=== PATIENT | female | born 1970 | race Two or more races ===

== ENCOUNTER 2018-04-05 14:27 | Emergency (ER) | payer OTHER ==
[~2018-04-05] VITALS: Ht 160 cm; Wt 57.3 kg
[2018-04-05 17:04] VITALS: BP 117/73
== END 2018-04-05 17:05 | disposition home or self-care (01) ==
LOC: EME 14:27
PROC: 2W3DX1Z Immobilization of Left Lower Arm using Splint (ICD-10-PCS; principal; 2018-04-05)
DX: S20.219A Contusion of unspecified front wall of thorax, initial encounter (principal); M79.642 Pain in left hand; V47.5XXA Car driver injured in collision with fixed or stationary object in traffic accident, initial encounter; Y92.410 Unspecified street and highway as the place of occurrence of the external cause
CPT/HCPCS: 73130; 99281; 99284